=== PATIENT | female | born 1945 | race Caucasian/White ===

== ENCOUNTER 2020-02-22 15:08 | Outpatient (REF) | payer OTHER, SELFPAY ==
[2020-02-22 16:09] LABS: MANUAL DIFF FLAG NO
[2020-02-22 16:16] LABS: Basophils Absolute Auto 0.1 X10*3/uL (0.0-0.2); Basophils Percent Auto 0.9 % (0-2); Eosinophils Absolute Auto 0.5 X10*3/uL (0.0-0.4); Eosinophils Percent Auto 5.5 % (0-4); Hematocrit 42.3 % (37-47); Imm Gran Abs Auto 0.01 X10*3/uL (0.00-0.03); Imm Gran Pct Auto 0.1 % (0.0-0.4); Lymphocytes Absolute Auto 3.2 X10*3/uL (1.2-4.9); Lymphocytes Percent Auto 35.2 % (20-40); Mean Corpuscular HGB Conc 33.1 g/dl (31.0-35.0); Mean Corpuscular Hemoglobin 30.9 pg (27.0-33.0); Mean Corpuscular Volume 93.4 fL (80-98); Mean Platelet Volume 10.9 fL (9.4-12.3); Monocytes Absolute Auto 0.9 X10*3/uL (0.1-1.2); Monocytes Percent Auto 9.9 % (2-11); Neutrophils Absolute Auto 4.4 X10*3/uL (2.0-8.3); Neutrophils Percent Auto 48.4 % (45-73); Platelet Count 288 X10*3/uL (160-400); Red Blood Count 4.53 X10*6/uL (4.20-5.50); Red Cell Distribution Width 11.9 % (11.0-16.0); White Blood Count 9.1 X10*3/uL (4.8-10.8)
[2020-02-22 16:22] LABS: Estimated Average Glucose 134 mg/dL; Hemoglobin A1c % 6.3 %
[2020-02-22 16:41] LABS: Alanine Aminotransferase 27 U/L (0-31); Albumin Level 4.3 g/dL (3.5-5.0); Alkaline Phosphatase 157 U/L (39-117); Anion Gap 16 (12-20); Aspartate Amino Transferase 32 U/L (5-31); Bilirubin Total 0.6 mg/dL (0.0-1.0); Blood Urea Nitrogen 12 mg/dL (9-16); Carbon Dioxide 31 mmol/L (22-29); Chloride 99 mmol/L (96-108); Estimated Glomerular Filt Rate > 60; Glucose Random 119 mg/dL (60-115); Potassium 3.9 mmol/l (3.3-5.1); Sodium 142 mmol/L (135-145)
== END 2020-02-22 15:09 | disposition home or self-care (01) ==
LOC: HO.LAB 15:08
PROVIDERS: PCP Internal Medicine; Visit Provider Internal Medicine
DX: I10 Essential (primary) hypertension (principal); E78.00 Pure hypercholesterolemia, unspecified; R73.03 Prediabetes
CPT/HCPCS: 36415; 80053; 83036; 85025

== ENCOUNTER 2020-09-29 18:08 | Emergency (ER) | payer OTHER, SELFPAY ==
--- NOTE | 2020-09-29 | ECG_ITS ---
Test Reason : CHEST PAIN Blood Pressure : / mmHG Vent. Rate : 063 BPM Atrial Rate : 063 BPM P-R Int : 172 ms QRS Dur : 084 ms QT Int : 466 ms P-R-T Axes : 069 038 056 degrees QTc Int : 476 ms Normal sinus rhythm Normal ECG When compared with ECG of 22-JUL-2015 17:51, No significant change was found Referred By: Generic ED Physician Electronically Signed By:RAMONA PAGE
--- NOTE | ~2020-09-29 | XR_ITS ---
EXAMINATION: XR CHEST CLINICAL INFORMATION: Chest pain COMPARISON: Chest radiographs on 10/17/2019 and 10/26/2019 TECHNIQUE: 2 views of the chest were obtained. FINDINGS: The cardiomediastinal and hilar contours are within normal limits. The lungs are clear without focal consolidation, pleural effusion or pneumothorax. XR/XR chest 2V IMPRESSION: No acute process identified.
[2020-09-29 18:21] VITALS: BP 149/65; PULSE 75; RESP 16; TEMP 36.7; O2SAT 96; BMI 29.1
[2020-09-29 21:30] VITALS: BP 164/64; PULSE 62; RESP 13; TEMP 36.8; O2SAT 98
[2020-09-29 21:43] LABS: MANUAL DIFF FLAG NO
[2020-09-29 22:07] LABS: Basophils Absolute Auto 0.1 X10*3/uL (0.0-0.2); Basophils Percent Auto 0.7 % (0-2); Eosinophils Absolute Auto 0.4 X10*3/uL (0.0-0.4); Hemoglobin 13.5 g/dl (12.0-16.0); Imm Gran Abs Auto 0.03 X10*3/uL (0.00-0.03); Imm Gran Pct Auto 0.3 % (0.0-0.4); Lymphocytes Absolute Auto 4.1 X10*3/uL (1.2-4.9); Lymphocytes Percent Auto 38.4 % (20-40); Mean Corpuscular HGB Conc 33.8 g/dl (31.0-35.0); Mean Corpuscular Hemoglobin 30.9 pg (27.0-33.0); Mean Corpuscular Volume 91.5 fL (80-98); Mean Platelet Volume 10.1 fL (9.4-12.3); Neutrophils Absolute Auto 5.1 X10*3/uL (2.0-8.3); Neutrophils Percent Auto 47.6 % (45-73); Platelet Count 251 X10*3/uL (160-400); Red Blood Count 4.37 X10*6/uL (4.20-5.50); Red Cell Distribution Width 11.9 % (11.0-16.0); White Blood Count 10.6 X10*3/uL (4.8-10.8)
[2020-09-29 22:44] VITALS: BP 163/65; PULSE 66; RESP 15; O2SAT 97
[2020-09-29 23:23] LABS: Alanine Aminotransferase 20 U/L (0-31); Albumin Level 4.1 g/dL (3.5-5.0); Alkaline Phosphatase 151 U/L (39-117); Anion Gap 16 (12-20); Aspartate Amino Transferase 30 U/L (5-31); Bilirubin Total 0.4 mg/dL (0.0-1.0); Blood Urea Nitrogen 11 mg/dL (9-16); Calcium 9.6 mg/dL (8.4-10.2); Carbon Dioxide 30 mmol/L (22-29); Chloride 101 mmol/L (96-108); Creatinine Clr Calc Pharmacy 78.7; Estimated Glomerular Filt Rate > 60; Glucose Random 88 mg/dL (60-115); Lipase 38 U/L (8-78); Potassium 3.6 mmol/L (3.3-5.1); Sodium 143 mmol/L (135-145); Total Protein 6.9 g/dL (6.5-8.0)
[2020-09-29 23:25] LABS: Troponin-I High Sensitivity 3.8 ng/L (<3.5-17.0)
--- NOTE | 2020-09-29 23:52 | ED.CHESTPAIN ---
HPI - Chest Pain General Chief Complaint: Chest Pain Stated Complaint: ?pneumonia Time Seen by Provider: 09/29/20 23:52 Related Data Allergies Allergy/AdvReac Type Severity Reaction Status Date / Time cat dander [CATS] Allergy Unknown WHEEZING,RUNNY Unverified 12/29/19 15:38 NOSE dog dander [DOGS] Allergy Unknown RUNNY NOSE Unverified 12/29/19 15:38 codeine [CODEINE] AdvReac Mild HEART RACE Unverified 12/29/19 15:38 Codeine Phosphate Allergy Unknown tachycardia Uncoded 12/06/19 00:00 ENVIRONMENTAL Allergy Unknown AFFECTS Uncoded 12/29/19 15:38 BREATHING DAIRY PRODUCTS AdvReac Unknown LACTOSE Uncoded 12/29/19 15:38 INTOL Review of Systems Review of Systems: Constitutional : No Weight loss, No Fever, No Chills, No Night Sweats, No Fatigue, No Malaise ENT/Mouth : No Hearing loss, No Ear Pain, No Nasal Congestion, No Sinus Pain, No Hoarseness, No sore throat, No Rhinorrhea, No Swallowing Difficulty Eyes: No Eye Pain, No Swelling, No Redness, No Foreign Body, No Discharge, No Vision Changes Cardiovascular : No Chest Pain, No SOB, No Dyspnea on Exertion, No Orthopnea, No Edema, No Palpitations, chest tightness Respiratory : No Cough, No Sputum, No Wheezing, No Smoke Exposure, No Dyspnea Gastrointestinal : No Nausea, No Vomiting, No Diarrhea, No Constipation, No abdominal Pain, No Hematochezia, No Melena Genitourinary : no irregular bleeding, No Dysuria, No Urinary Frequency, No Hematuria, No Urinary Incontinence, No Urgency, No Flank Pain, No Urinary Flow Changes, No Hesitancy Musculoskeletal : No joint pain, No Myalgias, No Joint Swelling Skin : No Skin Lesions, No rash Neuro : No Weakness, No Numbness, No Paresthesias, No Loss of Consciousness, No Dizziness, No Headache Psych : No Anxiety/Panic, No Depression, No SI/HI/AH/VH, No Social Issues, Heme/Lymph: No Bruising, No Bleeding,No Lymphadenopathy Endocrine : No Polyuria, No Polydipsia, No Temperature Intolerance Yes all other systems are reviewed and are negative [facility] Social History Social History Advance Directives: No Advance Directives Information Provided: No Physical Exam Vital Signs: Vital Signs: Last Vital Signs Temp 98.3 F 09/29/20 21:30 Pulse 66 09/29/20 22:44 Resp 15 09/29/20 22:44 BP 163/65 H 09/29/20 22:44 Pulse Ox 97 09/29/20 22:44 Body Mass Index 29.1 Const: General: healthy appearing, no acute distress and well developed Nutritional Appearance: well nourished Orientation/consciousness: patient oriented x3 Neck: Neck: Yes normal visual inspection, Yes full ROM and Yes trachea midline Thyroid: Thyroid normal Resp: Auscultation: clear to auscultation bilaterally Cardio: Rate: regular rate Rhythm: regular rhythm GI: Inspection: Yes normal to inspection and No distended Palpation (GI): No hepatosplenomegaly present Auscultation: normal bowel sounds Skin: General skin exam: elasticity normal, turgor normal and dry skin Neuro: General: patient oriented x3 Course Course Course Narrative: 75-year-old female for complaining of chest tightness, waking up last night feeling below shaky. Patient worries that she might have pneumonia. X-ray done while patient waiting and no acute processes identified. WBC is show no leukocytosis or anemia. Will order troponin CMP with lipase. Reevaluation(s) Reevaluation #1: All labs negative for any acute processes. Troponin 3.8 patient will be discharged home to follow-up with her primary care physician in 2-3 days. MDM - Chest Pain Lab Data Result diagrams: 09/29/20 21:39 09/29/20 22:45 Labs: Lab Results 09/29/20 09/29/20 09/29/20 Range/Units 21:39 22:45 22:45 WBC 10.6 (4.8-10.8) X10*3/uL RBC 4.37 (4.20-5.50) X10*6/uL Hgb 13.5 (12.0-16.0) g/dl Hct 40.0 (37-47) % MCV 91.5 (80-98) fL MCH 30.9 (27.0-33.0) pg MCHC 33.8 (31.0-35.0) g/dl RDW 11.9 (11.0-16.0) % Plt Count 251 (160-400) X10*3/uL MPV 10.1 (9.4-12.3) fL Immature Gran % (Auto) 0.3 (0.0-0.4) % Neut % (Auto) 47.6 (45-73) % Lymph % (Auto) 38.4 (20-40) % [place] % (Auto) 9.0 (2-11) % Eos % (Auto) 4.0 (0-4) % Baso % (Auto) 0.7 (0-2) % Lymph # (Auto) 4.1 (1.2-4.9) X10*3/uL [place] # (Auto) 1.0 (0.1-1.2) X10*3/uL Eos # (Auto) 0.4 (0.0-0.4) X10*3/uL Baso # (Auto) 0.1 (0.0-0.2) X10*3/uL Abs Immat Gran (auto) 0.03 (0.00-0.03) X10*3/uL Absolute Neuts (auto) 5.1 (2.0-8.3) X10*3/uL Absolute Nucleated RBC 0.000 (0.0-0.012) X10*3/uL Nucleated RBC % (auto) 0.0 (0.0-0.2) /100WBC Sodium 143 (135-145) mmol/L Potassium 3.6 (3.3-5.1) mmol/L Chloride 101 (96-108) mmol/L Carbon Dioxide 30 H (22-29) mmol/L Anion Gap 16 (12-20) BUN 11 (9-16) mg/dL Creatinine 0.70 (0.5-1.4) mg/dL Estim Creat Clear Calc 78.7 Estimated GFR > 60 Random Glucose 88 (60-115) mg/dL Calcium 9.6 D (8.4-10.2) mg/dL Total Bilirubin 0.4 (0.0-1.0) mg/dL AST 30 (5-31) U/L ALT 20 (0-31) U/L Alkaline Phosphatase 151 H (39-117) U/L Troponin I High Sens 3.8 (<3.5-17.0) ng/L Total Protein 6.9 (6.5-8.0) g/dL Albumin 4.1 (3.5-5.0) g/dL Lipase 38 (8-78) U/L Imaging Data Chest x-ray: Radiologist's impression: FINDINGS: The cardiomediastinal and hilar contours are within normal limits. The lungs are clear without focal consolidation, pleural effusion or pneumothorax. XR/XR chest 2V IMPRESSION: No acute process identified. Discharge Plan Discharge Clinical Impression: Atypical chest pain Patient Disposition: Home, Self-Care Instructions: Costochondritis (ED) Additional Instructions: You were seen here today for complaining of chest tightness. Your chest x-ray was negative for any acute processes. All your lab work was normal. Please follow-up with your primary care physicians and 3 days. You may return to emergency department if you experience any concerning symptoms. Stand Alone Forms: Work/School Release Interventions: LWBS Worksheet Last Done: 09/29/20 19:33 ED Discharge Assessment Last Done: 09/30/20 00:37 Discharge Date/Time: 09/30/20 00:43
== END 2020-09-30 00:43 | disposition home or self-care (01) ==
PROVIDERS: Nurse Practitioner Family; Emergency Provider Internal Medicine; PCP Internal Medicine
DX: R07.89 Other chest pain (principal)
CPT/HCPCS: 36415; 71046; 80053; 83690; 84484; 85025; 93005; 99285

== ENCOUNTER 2020-11-06 13:21 | Outpatient (REF) | payer OTHER, SELFPAY ==
--- NOTE | ~2020-11-06 | MM_ITS ---
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 Due for yearly. COMPARISON: Mammography: 10/22/2018, 09/18/2017, 08/18/2017 TECHNIQUE: Digital breast tomosynthesis is performed in both the craniocaudal and mediolateral oblique views along with computer-aided detection (CAD). Synthesized 2D images are generated from the tomosynthesis. Additional magnification right CC and magnification right ML views are obtained. FINDINGS: There are scattered areas of fibroglandular density (ACR BI-RADS breast composition Category b). There is fibronodular parenchymal pattern similar to prior studies. There is no developing density or interval mass or architectural abnormality. No abnormal calcifications. The axilla and skin contours are unremarkable. Results are provided to the patient at time of visit by the technologist. MM/MM tomosynthesis diagnostic BI IMPRESSION: No mammographic evidence of malignancy. ASSESSMENT: BI-RADS 2: Benign RECOMMENDATION: Routine annual mammography screening. This patient's information was entered into a reminder system with a target due date for their next mammogram.
== END 2020-11-06 13:22 | disposition home or self-care (01) ==
LOC: HO.MAMMO 13:21
PROVIDERS: Visit Provider Internal Medicine
DX: C50.911 Malignant neoplasm of unspecified site of right female breast (principal)
CPT/HCPCS: 77062; 77066

== ENCOUNTER 2021-05-10 12:34 | Outpatient (REF) | payer OTHER, SELFPAY ==
--- NOTE | ~2021-05-10 | XR_ITS ---
EXAMINATION: XR CHEST CLINICAL INFORMATION: Cough and chest tightness. COMPARISON: Chest radiograph dated from 09/29/2020. TECHNIQUE: 2 views of the chest were obtained. FINDINGS: Normal appearance of the cardiomediastinal silhouette. The lungs are clear without focal consolidation, pleural effusion or pneumothorax. No acute osseous abnormalities. Mild thoracic spondylosis. XR/XR chest 2V IMPRESSION: No acute cardiopulmonary findings.
[2021-05-10 13:48] LABS: MANUAL DIFF FLAG NO
[2021-05-10 13:52] LABS: Basophils Absolute Auto 0.1 X10*3/uL (0.0-0.2); Basophils Percent Auto 0.9 % (0-2); Eosinophils Absolute Auto 0.4 X10*3/uL (0.0-0.4); Eosinophils Percent Auto 3.9 % (0-4); Hematocrit 45.2 % (37.0-47.0); Imm Gran Abs Auto 0.03 X10*3/uL (0.00-0.03); Imm Gran Pct Auto 0.3 % (0.0-0.4); Lymphocytes Percent Auto 30.6 % (20-40); Mean Corpuscular HGB Conc 33.2 g/dl (31.0-35.0); Mean Corpuscular Hemoglobin 30.2 pg (27.0-33.0); Mean Corpuscular Volume 91.1 fL (80.0-98.0); Mean Platelet Volume 10.6 fL (9.4-12.3); Monocytes Absolute Auto 0.7 X10*3/uL (0.1-1.2); Monocytes Percent Auto 7.5 % (2-11); Neutrophils Absolute Auto 5.5 x10*3/uL (2.0-8.3); Neutrophils Percent Auto 56.8 % (45-73); Platelet Count 333 X10*3/uL (160-400); Red Blood Count 4.96 X10*6/uL (4.20-5.50); Red Cell Distribution Width 12.1 % (11.0-16.0); White Blood Count 9.6 X10*3/uL (4.8-10.8)
[2021-05-10 14:09] LABS: Alanine Aminotransferase 23 U/L (0-31); Albumin Level 4.2 g/dL (3.5-5.0); Alkaline Phosphatase 162 U/L (39-117); Anion Gap 12 (12-20); Aspartate Amino Transferase 33 U/L (5-31); Bilirubin Total 0.6 mg/dL (0.0-1.0); Blood Urea Nitrogen 15 mg/dL (9-16); C Reactive Protein 1.34 mg/dL (< or = 0.50); Carbon Dioxide 31 mmol/L (22-29); Chloride 101 mmol/L (96-108); Cholesterol 193 mg/dL; Estimated Glomerular Filt Rate > 60; Glucose Fasting 182 mg/dL (60-99); Sodium 140 mmol/L (135-145); Total Protein 7.4 g/dL (6.5-8.0)
[2021-05-10 14:28] LABS: Thyroid Stimulating Hormone 0.85 uIU/mL (0.32-4.0)
== END 2021-05-10 12:35 | disposition home or self-care (01) ==
LOC: HO.10HDL 12:34
PROVIDERS: Visit Provider Internal Medicine
DX: R05.9 Cough, unspecified (principal); I10 Essential (primary) hypertension; K21.9 Gastro-esophageal reflux disease without esophagitis; R53.83 Other fatigue; R07.9 Chest pain, unspecified
CPT/HCPCS: 36415; 71046; 80053; 82465; 82550; 84443; 85025; 86140

== ENCOUNTER 2021-12-17 11:50 | Outpatient (REF) | payer OTHER, SELFPAY ==
--- NOTE | ~2021-12-17 | CT_ITS ---
EXAMINATION: CT CHEST WITH CONTRAST CLINICAL INFORMATION: Mediastinal adenopathy COMPARISON: Previous chest CTA July 2015 and chest x-ray April 2021 TECHNIQUE: Multidetector volumetric CT imaging of the chest was obtained after the administration of 65 mL of Omnipaque 350 intravenous contrast without immediate adverse reactions. Axial MIP volume rendering provided. Sagittal and coronal reformatted images were obtained. This CT examination was performed using dose optimization techniques as appropriate, variously including the following: *Automated exposure control *Adjustment of mA and/or kV according to patient size (this includes techniques or standardized protocols for targeted exams where dose is matched to indication/reason for exam; i.e. 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 There is linear scarring or subsegmental atelectasis in the right middle lobe. The lungs are otherwise clear. MEDIASTINUM: There are no enlarged hilar or mediastinal lymph nodes. There are right cardiophrenic angle or anterior diaphragmatic lymph nodes that are normal in size. The heart size is normal. No pericardial effusion. No coronary artery calcification. Normal caliber thoracic aorta. PLEURA: There is no pleural effusion. No pleural mass or thickening. AXILLA: No lymphadenopathy. UPPER ABDOMEN: Gallstones. There may be fatty infiltration of the liver. There are small upper abdominal lymph nodes. There is a small right adrenal nodule measuring 6 x 9 mm that is unchanged. OSSEOUS STRUCTURES: There are degenerative changes of the spine. CT/CT chest w IV con IMPRESSION: No mediastinal adenopathy. There is right cardiophrenic angle or anterior diaphragmatic and upper abdominal small lymph nodes. These lymph nodes are new compared to previous CTA from 2016. Fatty infiltration of the liver. Gallstones. Small stable right adrenal nodule. Fleischner guidelines were followed.
[2021-12-17 12:18] LABS: MANUAL DIFF FLAG NO
[2021-12-17 12:20] LABS: Basophils Absolute Auto 0.1 X10*3/uL (0.0-0.2); Eosinophils Absolute Auto 0.5 X10*3/uL (0.0-0.4); Eosinophils Percent Auto 5.6 % (0-4); Hematocrit 43.5 % (37.0-47.0); Hemoglobin 14.3 g/dl (12.0-16.0); Imm Gran Abs Auto 0.04 X10*3/uL (0.00-0.03); Imm Gran Pct Auto 0.4 % (0.0-0.4); Lymphocytes Absolute Auto 2.8 X10*3/uL (1.2-4.9); Lymphocytes Percent Auto 30.4 % (20-40); Mean Corpuscular HGB Conc 32.9 g/dl (31.0-35.0); Mean Corpuscular Hemoglobin 29.9 pg (27.0-33.0); Mean Corpuscular Volume 90.8 fL (80.0-98.0); Mean Platelet Volume 10.4 fL (9.4-12.3); Monocytes Absolute Auto 0.8 X10*3/uL (0.1-1.2); Monocytes Percent Auto 8.4 % (2-11); Neutrophils Percent Auto 54.2 % (45-73); Platelet Count 238 X10*3/uL (160-400); Red Blood Count 4.79 X10*6/uL (4.20-5.50); Red Cell Distribution Width 12.6 % (11.0-16.0); White Blood Count 9.2 X10*3/uL (4.8-10.8)
[2021-12-17 12:39] LABS: Alanine Aminotransferase 31 U/L (0-31); Albumin Level 4.2 g/dL (3.5-5.0); Alkaline Phosphatase 161 U/L (39-117); Anion Gap 16 (12-20); Aspartate Amino Transferase 38 U/L (5-31); Bilirubin Total 0.3 mg/dL (0.0-1.0); Blood Urea Nitrogen 12 mg/dL (9-16); Calcium 9.3 mg/dL (8.4-10.2); Carbon Dioxide 30 mmol/L (22-29); Chloride 101 mmol/L (96-108); Estimated Glomerular Filt Rate > 60; Glucose Random 173 mg/dL (60-115); Sodium 143 mmol/L (135-145); Total Protein 7.3 g/dL (6.5-8.0)
[2021-12-18 13:28] LABS: CA 27.29 40 U/mL (<38)
== END 2021-12-17 11:51 | disposition home or self-care (01) ==
LOC: HO.CT 11:50
PROVIDERS: PCP Internal Medicine; Visit Provider Internal Medicine Medical Oncology
DX: C50.919 Malignant neoplasm of unspecified site of unspecified female breast (principal); R59.0 Localized enlarged lymph nodes
CPT/HCPCS: 36415; 71260; 80053; 85025; 86300

== ENCOUNTER 2022-06-12 15:13 | Outpatient (REF) | payer OTHER, SELFPAY ==
--- NOTE | ~2022-06-12 | CT_ITS ---
EXAMINATION: CT CHEST WITH CONTRAST CLINICAL INFORMATION: Followup diaphragmatic and upper abdominal lymphadenopathy. COMPARISON: 12/17/2021 and 07/22/2015. TECHNIQUE: Multidetector volumetric CT imaging of the chest was obtained after the administration of 65 mL of Omnipaque 350 intravenous contrast without immediate adverse reactions. Axial MIP volume rendering provided. Sagittal and coronal reformatted images were obtained. This CT examination was performed using dose optimization techniques as appropriate, variously including the following: *Automated exposure control. *Adjustment of mA and/or kV according to patient size (this includes techniques or standardized protocols for targeted exams where dose is matched to indication/reason for exam; i.e. extremities or head). *Use of iterative reconstruction technique. DLP: 259 mGy-cm FINDINGS: LUNGS: The central airways are patent. There is bronchial wall thickening present bilaterally without bronchiectasis. No significant changes of emphysema are appreciated. There is bilateral apical pleural-parenchymal scarring. There is some scarring/atelectasis seen within the right middle lobe. Sub-4 mm densities present. Within the right middle lobe on image [address] series #5, there is a 4 mm noncalcified nodule. Not definitely identified on previous study of 07/22/2015. Stable on study of 12/17/2021. Within the right lower lobe on image 381 of 575, there is a 5 mm noncalcified nodule present. On previous study of 07/22/2015 this measured approximately 3 mm in diameter. Stable on study of 12/17/2021. There is a 4 mm noncalcified nodule seen within the left lower lobe on image 292 of 575. Not definitely identified on study of 07/22/2015. Stable on study of 12/17/2021. There is a 4 mm noncalcified density seen within the lingula on image [id number]. Not identified on study of 07/22/2015. Stable on prior study of 12/17/2021. MEDIASTINUM: Visualized thyroid gland unremarkable. Heart mildly enlarged. No pericardial effusion. Coronary artery calcification is present. No thoracic aortic aneurysm or dissection. No mediastinal or hilar lymphadenopathy. There are again noted to be some prominent right pericardial lymph nodes with the largest measuring approximately 1.3 x 1.0 cm in size. The next largest measures approximately 1.1 x 0.6 cm in size. These have not changed significantly compared to study of 12/17/2021. On previous study of 07/22/2015, the largest lymph node measured approximately 1.1 x 0.7 cm in size with the next largest measuring 7 x 5 mm in size. PLEURA: There is no pleural effusion. There are some areas of pleural thickening/plaque seen within the upper lobes bilaterally. No calcified plaques are evident. AXILLA: No lymphadenopathy. UPPER ABDOMEN: There is cholelithiasis without evidence of acute cholecystitis. There is a stable right adrenal gland lesion measuring 1.2 x 0.9 cm in size, unchanged from 07/22/2015. No followup for the adrenal lesion is recommended. There are some non-enlarged periportal and GE junction lymph nodes. OSSEOUS STRUCTURES: No destructive bony lesions identified. CT/CT chest w IV con IMPRESSION: 1. Lung nodules as described which are stable compared to study of 12/17/2021 but with most being new compared to study of 07/22/2015. 2. No change in mediastinal and upper abdominal prominent lymph nodes. 3. Stable right adrenal gland nodule for which followup is not required. According to the UPDATED 2017 Fleischner Society recommendations, the advised follow-up imaging for solid nodules < 6 mm is: LOW RISK PATIENT: No routine follow-up. HIGH RISK PATIENT: Optional CT at 12 months.
[2022-06-12] MEDS: iohexoL 350 MG/ML 100 ML INFUS..BTL IV (16:16)
[2022-06-13 08:03] LABS: Creatinine POC 0.5 mg/dL (0.5-1.4); GFR POC > 60
== END 2022-06-12 15:14 | disposition home or self-care (01) ==
LOC: HO.CT 15:13
PROVIDERS: Visit Provider Internal Medicine Medical Oncology
DX: C50.919 Malignant neoplasm of unspecified site of unspecified female breast (principal)
CPT/HCPCS: 71260; 82565; Q9967

== ENCOUNTER → 2022-09-03 14:01 | Outpatient (BNVA) | payer OTHER, SELFPAY | PROVIDERS: PCP Internal Medicine; Visit Provider Internal Medicine ==

== ENCOUNTER 2022-12-24 16:08 | Outpatient (REF) | payer OTHER, SELFPAY ==
[2022-12-24 16:18] LABS: MANUAL DIFF FLAG NO
[2022-12-24 17:31] LABS: Basophils Absolute Auto 0.1 X10*3/uL (0.0-0.2); Basophils Percent Auto 0.8 % (0-2); Eosinophils Absolute Auto 0.3 X10*3/uL (0.0-0.4); Hematocrit 43.1 % (37.0-47.0); Hemoglobin 14.2 g/dl (12.0-16.0); Imm Gran Abs Auto 0.04 X10*3/uL (0.00-0.03); Imm Gran Pct Auto 0.4 % (0.0-0.4); Lymphocytes Absolute Auto 3.2 X10*3/uL (1.2-4.9); Lymphocytes Percent Auto 32.9 % (20-40); Mean Corpuscular HGB Conc 32.9 g/dl (31.0-35.0); Mean Corpuscular Hemoglobin 29.9 pg (27.0-33.0); Mean Corpuscular Volume 90.7 fL (80.0-98.0); Mean Platelet Volume 11.5 fL (9.4-12.3); Monocytes Absolute Auto 0.8 X10*3/uL (0.1-1.2); Monocytes Percent Auto 8.4 % (2-11); Neutrophils Absolute Auto 5.3 x10*3/uL (2.0-8.3); Neutrophils Percent Auto 54.5 % (45-73); Platelet Count 293 X10*3/uL (160-400); Red Blood Count 4.75 X10*6/uL (4.20-5.50); Red Cell Distribution Width 12.4 % (11.0-16.0); White Blood Count 9.7 X10*3/uL (4.8-10.8)
[2022-12-24 18:13] LABS: Alanine Aminotransferase 26 U/L (0-31); Albumin Level 4.1 g/dL (3.5-5.0); Alkaline Phosphatase 145 U/L (39-117); Anion Gap 13 (12-20); Aspartate Amino Transferase 32 U/L (5-31); Bilirubin Total 0.4 mg/dL (0.0-1.0); Blood Urea Nitrogen 10 mg/dL (9-16); Calcium 9.6 mg/dL (8.4-10.2); Carbon Dioxide 32 mmol/L (22-29); Chloride 102 mmol/L (96-108); Cholesterol 185 mg/dL (<200); Estimated Glomerular Filt Rate > 60; Glucose Random 130 mg/dL (60-115); HDL Cholesterol 39 mg/dL (>40); LDL Cholesterol Calculated 120 mg/dL (<100); Potassium 3.7 mmol/L (3.3-5.1); Sodium 143 mmol/L (135-145); Total Protein 7.2 g/dL (6.5-8.0); Triglycerides 131 mg/dL (<150)
[2022-12-25 05:24] LABS: Estimated Average Glucose 154 mg/dL
== END 2022-12-24 16:09 | disposition home or self-care (01) ==
LOC: HO.LAB 16:08
PROVIDERS: PCP Internal Medicine; Visit Provider Internal Medicine
DX: I10 Essential (primary) hypertension (principal); E78.00 Pure hypercholesterolemia, unspecified; R73.03 Prediabetes; M19.90 Unspecified osteoarthritis, unspecified site; J45.909 Unspecified asthma, uncomplicated
CPT/HCPCS: 36415; 80053; 80061; 82306; 83036; 85025

== ENCOUNTER 2023-01-14 14:11 | Outpatient (REF) | payer OTHER, SELFPAY | END 2023-01-14 14:12 | disposition home or self-care (01) | LOC: HO.MAMMO 14:11 | PROVIDERS: PCP Internal Medicine; Visit Provider Internal Medicine | DX: Z13.820 Encounter for screening for osteoporosis (principal); Z78.0 Asymptomatic menopausal state | CPT/HCPCS: 77080 ==

== ENCOUNTER 2023-02-05 12:10 | Outpatient (REF) | payer OTHER, SELFPAY ==
--- NOTE | ~2023-02-05 | XR_ITS ---
EXAMINATION: XR CHEST CLINICAL INFORMATION: A 77-year-old female with cough COMPARISON: 05/10/2021, TECHNIQUE: 2 views of the chest were obtained. FINDINGS: Lungs are hyperinflated secondary to emphysema. There are no infiltrates nodules or pleural effusions seen. Cardiomediastinal silhouette is normal. XR/XR chest 2V IMPRESSION: Mild emphysematous changes
== END 2023-02-05 12:11 | disposition home or self-care (01) ==
LOC: HO.XRAY 12:10
PROVIDERS: PCP Internal Medicine; Visit Provider Internal Medicine
DX: R05.9 Cough, unspecified (principal); J45.909 Unspecified asthma, uncomplicated
CPT/HCPCS: 71046

== ENCOUNTER 2023-03-18 14:02 | Outpatient (AMB) | payer OTHER, SELFPAY ==
--- NOTE | 2023-03-18 14:10 | A.OFFVIS_ITS ---
Intake Vital Signs 03/18/23 14:11 Height 5 ft 7 in Weight 183 lb BMI 28.7 BP 130/62 Blood Pressure Location Lt brachial Position Sitting Pulse 74 Pulse Source Pulse Oximeter Pulse Oximetry (%) 96 Oxygen Delivery Method Room Air Intake Visit Reasons: COPD Intake Note: pt is here for follow up and states only short of breath with exertion. 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 Allergies cat dander [CATS] Allergy (Unknown, Unverified 03/18/23 14:21) WHEEZING,RUNNY NOSE dog dander [DOGS] Allergy (Unknown, Unverified 03/18/23 14:21) RUNNY NOSE codeine [CODEINE] Adverse Reaction (Mild, Unverified 03/18/23 14:21) HEART RACE Codeine Phosphate Allergy (Unknown, Uncoded 03/18/23 14:21) tachycardia ENVIRONMENTAL Allergy (Unknown, Uncoded 03/18/23 14:21) AFFECTS BREATHING DAIRY PRODUCTS Adverse Reaction (Unknown, Uncoded 03/18/23 14:21) LACTOSE INTOL Medication List - Last Reconciled 03/18/23 by Myrna Glasgow MD albuterol sulfate 90 mcg/actuation 2 puffs inhalation QID aspirin 1 tab PO DAILY benazepril 1 tab PO DAILY hydrochlorothiazide 1 tab PO DAILY lovastatin 1 tab PO DAILY metoprolol tartrate 0.5 tabs PO BID omeprazole 1 cap PO BID paroxetine HCl 1 tab PO BID temazepam 1 cap PO BEDTIME PRN tiotropium bromide 2.5 mcg/actuation (Spiriva Respimat) 2 puffs inhalation DAILY Do you need a note to return to daycare/school/sports/work: No HPI COPD HPI Details 78 YEARS OLD FEMALE, STILL WORKING FULL -TIME AT, [employer] ( PREVIOUS [employer] ) STAYS VERY ACTIVE, USES HER INHALER SPIRIVA RESPIMAT 2 PUFFS EVERY DAY IN THE MORNING, AND HARDLY NEEDS TO USE ALBUTEROL. SHE HAD MILD COVID INFECTION IN NOVEMBER BUT IT WENT WITHOUT CAUSING ANY SYMPTOMS. AT PRESENT SHE HER MAIN COMPLAINT IS GETTING SHORT OF BREATH IF SHE GOES UP STAIRS OF OR WALKS OUTDOORS AT A FAST PACE. SHE HAD VERY LITTLE COUGH OR EXPECTORATION. [facility] Medical History COPD (chronic obstructive pulmonary disease) COPD (chronic obstructive pulmonary disease) Hypercholesteremia Hypertension Surgical History History of lumpectomy of right breast Family History Father Hodgkin lymphoma Sister Breast cancer Social History Household Members: None Housing: Apartment Are you a primary care services manager to a significant other at home: No Do you presently have visiting nurse or other home services: No Patient Tobacco Use Status: Former Tobacco user Tobacco use type: Cigarette Years Smoked: 20 service: No Current occupational status: employed Review of Systems Const All systems reviewed & are unremarkable except as noted in HPI and below Eyes Reports no additional complaints ENT Reports no additional complaints Card Denies chest pain, Denies irregular heart rhythm and Denies leg edema Resp Reports as per HPI GI Reports no additional complaints Reports no additional complaints Musc Reports no additional complaints Skin/Breast Reports system reviewed and no additional complaints, except as documented Neuro Reports no additional complaints Psych Reports no additional complaints Endo Reports no additional complaints Des/Lymph Reports no additional complaints Physical Exam Vital Signs: Last Vital Signs Pulse 74 03/18/23 14:11 BP 130/62 03/18/23 14:11 Pulse Ox 96 03/18/23 14:11 Oxygen Delivery Method Room Air 03/18/23 14:11 BMI result Body Mass Index 28.7 Const General: healthy appearing, comfortable, no acute distress, alert and awake Orientation/consciousness: patient oriented x3 HEENT Head: Yes normal to inspection General nose exam: No nasal polyps present and No nasal discharge present Face and sinus: Yes sinuses nontender Mouth: oropharynx normal Throat: Yes posterior oropharynx normal Eyes General: appearance normal, both eyes and all related structures Neck Neck: Yes normal visual inspection, Yes no lymphadenopathy, Yes trachea midline and Yes no JVD Thyroid: Thyroid normal Chest Chest palpation & inspection: normal inspection of the chest, normal palpation of entire chest wall and no tenderness Resp Other: Percussion note is a resident. Breath sounds slightly distant. No wheezes rhonchi or crepitations are heard. Cardio Palpation: normal PMI Rate: regular rate Rhythm: regular rhythm Heart sounds: no gallops and no murmurs Peripheral pulses: Peripheral pulses 2+ throughout GI Palpation (GI): Soft to palpation, nontender, No hepatosplenomegaly present and no masses Auscultation: normal bowel sounds Back/Spine/Pelvis Thoracic/Lumbar Spine: thoracic and lumbar spine normal to inspection Skin General skin exam: no rashes or lesions noted Neuro General: patient oriented x3 and no focal motor deficits Cranial nerves: Yes CN's II-XII intact bilaterally Extrem General: Yes normal to inspection, Yes no clubbing, cyanosis or edema and Yes no calf tenderness Psych Appearance: grossly normal and well kempt Speech and movement: Normal speech and movement present Assessment & Plan Assessment & Plan (1) COPD (chronic obstructive pulmonary disease): Comment: THIS 78 YEARS OLD FEMALE DOES HAVE, RELATIVELY SEVERE CHRONIC OBSTRUCTIVE PULMONARY DISEASE. THIS HAS BEEN WELL CONTROLLED BY HER CURRENT TREATMENT REGIMEN AND SHE IS RELATIVELY ASYMPTOMATIC AT THIS TIME. TX: ADVISED TO CONTINUE USING SPIRIVA RESPIMAT 2.5 MCG 2 INHALATIONS DAILY. ALBUTEROL HFA 2 PUFFS Q 4-6 HOURS P.R.N.. Code(s): J44.9 - Chronic obstructive pulmonary disease, unspecified Plan: CONTINUE THE PRESENT MEDS. TALKED ABOUT VACCINES, .SHE IS UP TO DATE ADVISED THAT SHE SHOULD GET COVID VACCINE BEFORE THE END OF THE YEAR. RECHECK Q 6 MONTHS. Coding Level of Care Code Est Pt Level 3 (44535) Diagnoses COPD (chronic obstructive pulmonary disease) J44.9
[2023-03-18 14:11] VITALS: BP 130/62; PULSE 74; O2SAT 96; BMI 28.7
== END 2023-03-18 14:28 | disposition home or self-care (01) ==
PROVIDERS: PCP Internal Medicine; Visit Provider Internal Medicine
DX: J44.9 Chronic obstructive pulmonary disease, unspecified (principal)
CPT/HCPCS: 99213

== ENCOUNTER → 2023-03-18 14:02 | Outpatient (BNVA) | payer OTHER, SELFPAY | PROVIDERS: PCP Internal Medicine; Visit Provider Internal Medicine ==

== ENCOUNTER 2024-11-07 14:20 | Outpatient (AMB) | payer OTHER, SELFPAY ==
--- OUTSIDE RECORDS SUMMARY | 2024-11-07 15:05 | XMS_ITS | Patient Health Record ---
Author Organization [facility] Address [address] [place] [id number] Care Team Providers Care Food Counselor Name Role Phone Rosas Reynolds Davidabigail Chadwick Reason For Referral No Information Plan Of Treatment No Information
--- OUTSIDE RECORDS SUMMARY | 2024-11-07 15:05 | XMS_ITS | Clinical Summary ---
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 Name Role Phone Unavailable Primary Care Provider Unavailabl e Immunizations Immunization Administration Dates Next Due Influenza, seasonal, injectable, preservative fr ee 02/02/2024 Pfizer Covid-19 Vaccine 12+ 02/02/2024, 3 Social History Tobacco Use Types Packs/Day Years Used Date Smoking Tobacco: Never Assessed Comments Unknown Sex and Gender Information Value Date Recorded Sex Assigned at Female 03/31/2023 4:24 PM EST Legal Sex Female 4:22 PM EST Gender Identity Female 03/31/2023 4:24 PM EST Sexual Orientation Straight 03/31/2023 4: 24 PM EST Plan of Treatment Health Maintenance Due Date Last Done Comments Depression Screening 1945 SDOH Screening 1945 Alcohol/Substance Use Screening 1958 Tobacco Screening 1958 Hepatitis C Screening 02/26/1964 DTaP/Tdap/Td Vaccines (1 - Tdap) 1965 Pneumococcal Vaccine: 50+ Years (1 of 1 - PCV) 02/26/1996 Zoster Vaccines (1 of 2) 02/26/1996 COVID-19 Vaccine ( season) 2024 02/02/2024, 03/31/2023, 08/14/2021, Additional history exists Influenza Vaccine (#1) 2024 , 12/31/2021, 12/21/2018, Additional history exists RSV Patients and Patients Aged 60 years or older Completed 01/21/2023 HIB Vaccines Aged Out No longer eligi ble based on patient's age to complete this topic HPV Vaccines Aged Out No longer eligi ble based on patient's age to complete this topic Hepatitis A Vaccines Aged Out No long er eligible based on patient's age to complete this topic Hepatitis B Vaccines Aged Out No long er eligible based on patient's age to complete this topic IPV Vaccines Aged Out No longer eligi ble based on patient's age to complete this topic Meningococcal B Vaccine Aged Out No l onger eligible based on patient's age to complete this topic Meningococcal Vaccine Aged Out No valentin antonino eligible based on patient's age to complete this topic RSV under 20 months Aged Out No longe r eligible based on patient's age to complete this topic Rotavirus Vaccines Aged Out No longer eligible based on patient's age to complete this topic Insurance [facility] [address] [place] [address]
--- NOTE | 2024-11-07 15:20 | AM.OFFWIN_ITS ---
Intake Vital Signs 11/07/24 15:24 Height 5 ft 7 in Weight 167 lb 8 oz BMI 26.2 BP 132/70 Blood Pressure Location Lt brachial Position Sitting Pulse 70 Pulse Source Pulse Oximeter Temp 97.8 F Temp Source Oral Pulse Oximetry (%) 97 Oxygen Delivery Method Room Air Intake Visit Reasons: EP-?shingles Intake Note: presents with red itchy and burning rash to neck and right chin Patient Tobacco Use Status: Former Tobacco user Allergies cat dander (CATS) Allergy (Unknown, Verified 11/07/24 15:27) WHEEZING,RUNNY NOSE dog dander (DOGS) Allergy (Unknown, Verified 11/07/24 15:27) RUNNY NOSE codeine (CODEINE) Adverse Reaction (Mild, Verified 11/07/24 15:27) HEART RACE Codeine Phosphate Allergy (Unknown, Uncoded 03/18/23 14:21) tachycardia ENVIRONMENTAL Allergy (Unknown, Uncoded 03/18/23 14:21) AFFECTS BREATHING DAIRY PRODUCTS Adverse Reaction (Unknown, Uncoded 03/18/23 14:21) LACTOSE INTOL Do you need a note to return to daycare/school/sports/work: No HPI HPI Comments History of Present Illness Details History - The patient is a 79-year-old female pr esenting with a rash on the neck, suspected to be shingles as per her pharmacist. - The rash began on with dry sk in noticed on the neck, which progressively worsened over the following days. - The patient reports the rash is itchy and burning, with some areas developing fluid-filled vesicles. - The patient has a history of shingles approximately 10 years ago, which was localized and did not spread. - No new lotions or creams have been use d, and there is no history of allergic reactions. Physical Exam General: Cooperative, healthy appearing, comfortable, no acute distress and well developed Orientation: Patient oriented x3 Limitations: No limitations Head: Normal to inspection Ears: Hearing grossly normal bilaterally Nose: Normal External nose present Face and sinus: Normal facial exam Eyes: Appearance normal, both eyes and all related structures Neck: Normal visual inspection and Yes full ROM Respiratory: Normal respiratory effort and able to speak in complete sentences. Skin: Vesicular rash with an erythematous base on the neck C2 dermatome Neuro: Patient oriented x3 PENDING SALE TO [facility] Medical History COPD (chronic obstructive pulmonary disease) COPD (chronic obstructive pulmonary disease) Hypercholesteremia Hypertension Surgical History History of lumpectomy of right breast Family History Father Hodgkin lymphoma Sister Breast cancer Social History Household Members: None Housing: Apartment Are you a primary home care coordinator to a significant other at home: No Do you presently have visiting nurse or other home services: No Patient Tobacco Use Status: Former Tobacco user Tobacco use type: Cigarette Years Smoked: 20 service: No Current occupational status: employed Review of Systems Const All systems reviewed & are unremarkable except as noted in HPI and below Physical Exam Vital Signs: Last Vital Signs Temp 97.8 F 11/07/24 15:24 Pulse 70 11/07/24 15:24 BP 132/70 11/07/24 15:24 Pulse Ox 97 11/07/24 15:24 Oxygen Delivery Method Room Air 11/07/24 15:24 BMI result Body Mass Index 26.2 Assessment & Plan Assessment & Plan (1) Shingles rash: Code(s): B02.9 - Zoster without complications Qualifiers: Herpes zoster complications: unspecified herpes zoster complication Qualified Code(s): B02.8 - Zoster with other complications Plan: Plan Patient was informed and verbally consented to the use of an ambient scribe for clinic note documentation during this visit. Herpes Zoster (Shingles) - Does not appear to be a contact dermatitis - Initiate treatment with valacyclovir, 1 gram every 8 hours for 7 days. - Prescribe gabapentin for nerve pain, 100 mg three times a day as needed. - Advise follow-up if symptoms do not improve after a few days of treatment. May not be shingles and may need a referral to Derm. Medications: New valacyclovir 1,000 mg PO Q8H 21 tabs 0RF 7 days gabapentin 100 mg PO TID PRN 20 caps 0RF pain Coding Level of Care Code Est Pt Level 3 (26455) Diagnoses Herpes zoster with complication B02.8 Herpes zoster complications: unspecified herpes zoster complication
[2024-11-07 15:24] VITALS: BP 132/70; PULSE 70; TEMP 36.6; O2SAT 97; BMI 26.2
== END 2024-11-07 16:07 | disposition home or self-care (01) ==
PROVIDERS: PCP Internal Medicine; Visit Provider Physician Assistant
DX: B02.8 Zoster with other complications (principal)

== ENCOUNTER 2024-11-11 16:19 | Outpatient (AMB) | payer OTHER, SELFPAY ==
--- OUTSIDE RECORDS SUMMARY | 2024-11-11 16:21 | XMS_ITS | Patient Health Record ---
Author Organization [facility] Address [address] [place] [id number] Care Team Providers Care Meter Installer And Remover Name Role Phone Rosas Reynolds Davidabigail Chadwick Reason For Referral No Information Plan Of Treatment No Information
[2024-11-11 16:22] VITALS: BP 122/66; PULSE 68; TEMP 36.6; O2SAT 97; BMI 26.2
--- NOTE | 2024-11-11 16:22 | MHC.OFFWIV ---
Intake Vital Signs 11/11/24 16:22 Height 5 ft 7 in Weight 167 lb BMI 26.2 BP 122/66 Blood Pressure Location Lt brachial Position Sitting Pulse 68 Pulse Source Pulse Oximeter Temp 97.9 F Temp Source Oral Pulse Oximetry (%) 97 Oxygen Delivery Method Room Air Intake Visit Reasons: EP-neck rash Intake Note: pt presents with concern for vibrant red and spreading rash, didn't take Valacyclovir prescribed a few days ago but did take the gabapentin- D/C due to dizzy reaction. Patient Tobacco Use Status: Former Tobacco user Allergies cat dander (CATS) Allergy (Unknown, Verified 11/11/24 16:25) WHEEZING,RUNNY NOSE dog dander (DOGS) Allergy (Unknown, Verified 11/11/24 16:25) RUNNY NOSE codeine (CODEINE) Adverse Reaction (Mild, Verified 11/11/24 16:25) HEART RACE Codeine Phosphate Allergy (Unknown, Uncoded 03/18/23 14:21) tachycardia ENVIRONMENTAL Allergy (Unknown, Uncoded 03/18/23 14:21) AFFECTS BREATHING DAIRY PRODUCTS Adverse Reaction (Unknown, Uncoded 03/18/23 14:21) LACTOSE INTOL Do you need a note to return to daycare/school/sports/work: Yes HPI HPI Comments History of Present Illness Details History - The patient is a 79-year-old female presenting with a rash on the face and neck, suspected to be shingles. - The rash began earlier in the week, starting as a rough patch on the right jawbone and evolving into a flat, red rash with occasional small bumps. - Vesicles were initially present but have since resolved, leaving a flat, red rash. - The patient applied Eucerin cream for dry itching but noted no significant improvement. - Valacyclovir was prescribed but not taken due to concerns about side effects; gabapentin was used for nerve pain instead. - Cincerned as she feels like the rash has not improved - She works and is afraid that she won't be allowed to work. - She denies fever, chills, abd pain, n/v/d, CP, SOB. Physical Exam General: Cooperative, healthy appearing, comfortable, no acute distress but emotional Orientation: Patient oriented x3 Neck: Rash present Respiratory: Normal respiratory effort and able to speak in complete sentences. Skin: Erythematous, non-tender flat macular rash noted on the anterior neck in the C4 dermatome. No vesicles noted. No discharge noted. No bleeding noted. Neuro: Patient oriented x3 Patient was informed and verbally consented to the use of an ambient scribe for clinic note documentation during this visit. [facility] Medical History COPD (chronic obstructive pulmonary disease) COPD (chronic obstructive pulmonary disease) Hypercholesteremia Hypertension Surgical History History of lumpectomy of right breast Family History Father Hodgkin lymphoma Sister Breast cancer Social History Household Members: None Housing: Apartment Are you a primary behavioral health care coordinator to a significant other at home: No Do you presently have visiting nurse or other home services: No Patient Tobacco Use Status: Former Tobacco user Tobacco use type: Cigarette Years Smoked: 20 service: No Current occupational status: employed Review of Systems Const All systems reviewed & are unremarkable except as noted in HPI and below Physical Exam Vital Signs: Last Vital Signs Temp 97.9 F 11/11/24 16:22 Pulse 68 11/11/24 16:22 BP 122/66 11/11/24 16:22 Pulse Ox 97 11/11/24 16:22 Oxygen Delivery Method Room Air 11/11/24 16:22 BMI result Body Mass Index 26.2 Assessment & Plan Assessment & Plan (1) Shingles rash: Code(s): B02.9 - Zoster without complications Qualifiers: Herpes zoster complications: unspecified herpes zoster complication Qualified Code(s): B02.8 - Zoster with other complications (2) Rash of neck: Code(s): R21 - Rash and other nonspecific skin eruption Plan Most likely shingles and possibel secondary cellulitis Plan - Initiate prednisone to alleviate inflammation and itching. - Prescribe Keflex to treat any secondary bacterial infection. - Discuss the benefits of Valacyclovir for managing the shingles virus, addressing concerns about side effects. - Tylenol as needed for pain with the gabapentin - follow up with PCP Medications: New cephalexin 500 mg PO Q6H 28 caps 0RF prednisone 50 mg PO QAM 5 tabs 0RF Coding Level of Care Code Est Pt Level 3 (16649) Diagnoses Herpes zoster with complication B02.8 Herpes zoster complications: unspecified herpes zoster complication Rash of neck R21
== END 2024-11-11 16:58 | disposition home or self-care (01) ==
PROVIDERS: PCP Internal Medicine; Visit Provider Physician Assistant Medical
DX: B02.8 Zoster with other complications (principal); R21 Rash and other nonspecific skin eruption

== ENCOUNTER 2025-01-18 14:05 | Outpatient (REF) | payer OTHER, SELFPAY ==
[2025-01-18 15:21] LABS: MANUAL DIFF FLAG NO
[2025-01-18 15:36] LABS: Hematocrit 41.4 % (37.0-47.0); Hemoglobin 13.9 g/dl (12.0-16.0); Imm Gran Abs Auto 0.03 X10*3/uL (0.00-0.03); Imm Gran Pct Auto 0.3 % (0.0-0.4); Lymphocytes Absolute Auto 3.8 X10*3/uL (1.2-4.9); Mean Corpuscular HGB Conc 33.6 g/dl (31.0-35.0); Mean Corpuscular Hemoglobin 30.4 pg (27.0-33.0); Mean Corpuscular Volume 90.6 fL (80.0-98.0); NRBC Abs Auto 0.000 X10*3/uL (0.0-0.012); NRBC Pct Auto 0.0 /100WBC (0.0-0.2); Platelet Count 300 X10*3/uL (160-400); Red Blood Count 4.57 X10*6/uL (4.20-5.50); White Blood Count 11.1 X10*3/uL (4.8-10.8)
[2025-01-18 18:05] LABS: Alanine Aminotransferase 25 U/L (0-31); Albumin Level 4.5 g/dL (3.5-5.0); Alkaline Phosphatase 188 U/L (39-117); Anion Gap 13 (12-20); Aspartate Amino Transferase 36 U/L (5-31); Blood Urea Nitrogen 18 mg/dL (9-16); Calcium 10.1 mg/dL (8.4-10.2); Carbon Dioxide 30 mmol/L (22-29); Chloride 103 mmol/L (96-108); Cholesterol 166 mg/dL (<200); Estimated Glomerular Filt Rate > 60; HDL Cholesterol 35 mg/dL (>40); Potassium 3.9 mmol/L (3.3-5.1); Sodium 142 mmol/L (135-145); Total Protein 7.6 g/dL (6.5-8.0); Triglycerides 148 mg/dL (<150)
== END 2025-01-18 14:06 | disposition home or self-care (01) ==
LOC: HO.LAB 14:05
PROVIDERS: PCP Student in an Organized Health Care Education/Training Program; Visit Provider Student in an Organized Health Care Education/Training Program
DX: Z76.89 Persons encountering health services in other specified circumstances (principal); E78.49 Other hyperlipidemia; I10 Essential (primary) hypertension; J41.0 Simple chronic bronchitis; E11.9 Type 2 diabetes mellitus without complications; K21.9 Gastro-esophageal reflux disease without esophagitis; F33.0 Major depressive disorder, recurrent, mild; G47.09 Other insomnia; Z79.82 Long term (current) use of aspirin; Z79.84 Long term (current) use of oral hypoglycemic drugs; Z79.899 Other long term (current) drug therapy; Z87.891 Personal history of nicotine dependence
CPT/HCPCS: 36415; 80053; 80061; 82306; 83036; 84443; 85025; 96127

== ENCOUNTER 2025-01-18 14:05 | Outpatient (AMB) | payer OTHER, SELFPAY ==
--- NOTE | 2025-01-18 13:26 | A.OFFPC_ITS ---
Vital Signs 01/18/25 14:10 Height 5 ft 7 in Weight 167 lb BMI 26.2 BP 140/58 H Blood Pressure Location Lt brachial Position Sitting Respiration 18 Pulse 73 Pulse Source Pulse Oximeter Temp 97.1 F Temp Source Temporal Artery Scan Pulse Oximetry (%) 98 Oxygen Delivery Method Room Air Intake Visit Reasons: Croke pt-to establish care Porcelain Enamel Sprayer Required: No Accompanied by: Self / Same As Patient Allergies cat dander (CATS) Allergy (Unknown, Verified 01/18/25 13:27) WHEEZING,RUNNY NOSE dog dander (DOGS) Allergy (Unknown, Verified 01/18/25 13:27) RUNNY NOSE codeine (CODEINE) Adverse Reaction (Mild, Verified 01/18/25 13:27) HEART RACE Codeine Phosphate Allergy (Unknown, Uncoded 03/18/23 14:21) tachycardia ENVIRONMENTAL Allergy (Unknown, Uncoded 03/18/23 14:21) AFFECTS BREATHING DAIRY PRODUCTS Adverse Reaction (Unknown, Uncoded 03/18/23 14:21) LACTOSE INTOL Medication List - Last Reconciled 01/18/25 by Prabhjot Smith MD albuterol sulfate 90 mcg/actuation 2 puffs inhalation QID PRN aspirin 81 mg PO DAILY benazepril 40 mg PO DAILY bimatoprost 0.03% 1 drp ophthalmic (eye) BEDTIME hydrochlorothiazide 25 mg PO DAILY lovastatin 40 mg PO DAILY metformin ER 250 mg PO DAILY metoprolol tartrate 25 mg (1/2 x 50 mg) PO BID omeprazole 20 mg PO BID paroxetine HCl 20 mg PO BID Spiriva Respimat 2.5 mcg/actuation (tiotropium bromide) 2 puffs inhalation DAILY NS temazepam 15 mg PO BEDTIME PRN 10 days Tobacco use date assessed: 01/18/25 Fall risk assessment: 1 Fall in past year Last assessed Fall Risk: 01/18/25 Dental Screening Dental Screen Date: 01/18/25 Did you have a dental visit in the last 12 months?: Yes Did you have a dental problem in the last 6 months where you did not have access to dental care?: No Was dental information given to patient?: Patient has dentist HPI HPI Comments History of Present Illness Details The patient is a 79-year-old female presenting with insomnia, depression, and concerns related to her medications. She reports ongoing difficulty sleeping, stating, Sleep is not good, and is concerned about the current use of Temazepam, which she feels she cannot wean off because she needs it to sleep. The patient describes the medication as causing dependence and is worried about its horrible side effects, specifically mentioning potential dementia risk. She also discusses depression, reporting a constant feeling of depression for the past 30 years despite being on paroxetine (Paxil) initially started at around age 41. She feels that the medication is no longer effective, mentioning that she wakes up feeling depressed daily. She notes a recent episode of neck pain that occurred upon waking, describing it as a sharp pain but not soreness or spasms, which resolved on its own. Additionally, she noticed that the roof of her mouth was slightly swollen at that time, which also subsided. Her medical history includes a diagnosis of hypertension managed by multiple medications. She also notes a past prescription of metformin for type 2 diabetes, with a last recorded A1c of 7 as of December 2022, indicating fair control of her blood sugar. She takes aspirin for cardiac prevention, Spiriva, and albuterol for COPD management, and lumigan for glaucoma. Medical History: - Hypertension - Hyperlipidemia - Type 2 Diabetes Mellitus (A1c of 7 in December 2022) - Chronic Obstructive Pulmonary Disease (COPD) - Glaucoma - Gastroesophageal reflux disease (GERD) - Major depressive disorder - Smoked from age 27 to 47, ceased 30 ye ars ago Surgical History: - Breast lump removal in 2018, found to be benign Medications: - Temazepam for insomnia - Paroxetine (Paxil) for depression - Lisinopril 40 mg for hypertension - Hydrochlorothiazide 25 mg for hyperten april - Lovastatin 40 mg for hyperlipidemia - Metoprolol tartrate 25 mg twice a day for hypertension - Aspirin for cardiac prevention - Spiriva, 2 puffs daily for COPD - Albuterol as needed for COPD - Lumigan for glaucoma - Omeprazole 20 mg as needed for acid re flux - Metformin 250 mg extended release pawan y for diabetes Family History: - Father: Hodgkin's lymphoma diagnosed a t age 49, lived to 89 - Mother: Cerebral hemorrhage Social History: - Employment: 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, 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 - Smoked from age 27 to 47; quit 30 year s ago - No alcohol or drug use reported - No current exercise routine discussed - Lives independently - Does not consume alcohol, marijuana, h eroin, or cocaine [facility] Medical History (Updated 01/18/25 @ 14:55 by Prabhjot Smith MD) Insomnia Depression GERD (gastroesophageal reflux disease) Diabetes Hyperlipidemia COPD (chronic obstructive pulmonary disease) COPD (chronic obstructive pulmonary disease) Hypercholesteremia Hypertension Surgical History History of lumpectomy of right breast Family History Father Hodgkin lymphoma Sister Breast cancer Social History Household Members: None Housing: Apartment Are you a primary healthcare consulting manager to a significant other at home: No Do you presently have visiting nurse or other home services: No Patient Tobacco Use Status: Former Tobacco user Tobacco use type: Cigarette Years Smoked: 20 e-Cigarette/Vaping Use: Never Used service: No Current occupational status: employed Current occupation: [employer] Questionnaire PHQ-9 Over the last 2 weeks, how often have you been bothered by any of the following problems? 1. Little interest or pleasure in doing things: several days 2. Feeling down, depressed, or hopeless: several days 3. Trouble falling or staying asleep, or sleeping too much: several days 4. Feeling tired or having little energy: several days 5. Poor appetite or overeating: several days 6. Feeling bad about yourself - or that you are a failure or have let yourself or your family down: several days 7. Trouble concentrating on things, such as reading the newspaper or watching television: several days 8. Moving or speaking so slowly that other people could have noticed. Or the opposite - being so fidgety or restless that you have been moving around a lot more than usual: not at all 9. Thoughts that you would be better off or of hurting yourself in some way: not at all Total score: 7 Depression Screening Interpretation: Negative Depression Screening Done: Yes [id number] - PHQ-9 Billing: Yes Source: Developed by Drs. Tito Multani, Herlinda Holder, Manuel Paredes and colleagues, with an educational carissa from [employer]. Thrive Questionnaire Date Thrive assessed: 10/08/25 I am a: Patient What is your living situation today?: I have a steady place to live Within the past 12 months, did the food you bought not last and you didn't have the money to get more?: Never true Within the past 12 months, did you worry whether your food would run out before you got money to buy more?: Never true Do you have trouble paying for medicines?: No Do you have trouble getting transportation to medical appointments?: No Do you have trouble paying your heating and electricity bill?: No Do you have trouble taking care of your child, family member or friend?: No Do you have trouble with day-to-day activities such as bathing, preparing meals, shopping, managing finances, etc.?: No Are you currently unemployed and looking for a job?: No Are you interested in more education?: No THRIVE Score: 0 AUDIT C Alcohol Use Questionnaire (AUDIT-C) 1. How often do you have a drink containing alcohol?: Never 3. How often do you have six or more drinks on one occasion?: Never Total Score: 0 Score Reviewed/Action Taken: Yes YUNIOR-7 AMB Questionnaire YNUIOR-7 Date YUNIOR - 7 assessed: 01/18/25 Feeling nervous, anxious, or on edge: 1 = Several days Not being able to stop or control worryin = Several days Worrying too much about different things: 1 = Several days Trouble relaxin = Several days Being so restless that it is hard to sit still: 1 = Several days Becoming easily annoyed or irritable: 0 = Not at all Feeling afraid as if something awful might happen: 0 = Not at all Total YUNIOR-7 score (0-4 normal; 5-9 mild; 10-14 moderate; 15-21 severe): 5 Source: Developed by Drs. Tito Multani, Herlinda Holder, Manuel Paredes and colleagues, with an educational carissa from [employer]. YUNIOR-7 Assessment Billing YUNIOR-7 Assessment Tool: YUNIOR-7 Assessment 70431 Review of Systems Const Details: - General: Reports insomnia; Denies fatigue beyond normal tiredness from work - Eyes: Reports glaucoma - Respiratory: Reports COPD management - Cardiovascular: Reports hypertension - Gastrointestinal: Reports GERD - Musculoskeletal: Reports neck pain episodically - Neurologic: Denies tremors beyond anxiety-related episodes - Psychiatric: Reports depression All systems reviewed & are unremarkable except as reviewed in HPI and above Physical exam (Primary Care) Vital Signs: Last Vital Signs Temp 97.1 F 01/18/25 14:10 Pulse 73 01/18/25 14:10 Resp 18 01/18/25 14:10 BP 140/58 H 01/18/25 14:10 Pulse Ox 98 01/18/25 14:10 Oxygen Delivery Method Room Air 01/18/25 14:10 BMI result Body Mass Index 26.2 Tobacco/Smoking Status: Tobacco use Status Tobacco use date assessed 01/18/25 01/18/25 13:28 Patient Tobacco Use Status Former Tobacco user 01/18/25 13:28 Tobacco use type Cigarette 01/18/25 13:28 e-Cigarette/Vaping Use Never Used 01/18/25 13:28 PHQ-9: PHQ-9 Score PHQ-9: Total score 7 01/18/25 14:24 Depression Screening Interpretation: Negative Thrive Assessment: Date of Thrive Assessment Date Thrive assessed 01/18/25 01/18/25 14:24 Const Other: General: +Alert and oriented, Well nourished, No acute distress. Eye: Pupils are equal, round and reactive to light, Intact accommodation, Extraocular movements are intact, Normal conjunctiva, Vision unchanged. HENT: Normocephalic, Atraumatic, Tympanic membranes are clear, Normal hearing, Oral mucosa is moist, No pharyngeal erythema, Ear canals patent. Respiratory: Lungs CTA bilaterally, No wheeze, Respirations are non-labored. Cardiovascular: Regular rate, Regular rhythm, S1 auscultated, S2 auscultated, No murmur, Good pulses equal in all extremities, Normal peripheral perfusion, No edema. Gastrointestinal: Soft, Non-tender, Non-distended, Normal bowel sounds, No organomegaly. Musculoskeletal: Normal range of motion, Normal strength, No tenderness, No swelling, No deformity, Normal gait. Integumentary: Warm, Dry, [place], Intact. Neurologic: Alert, Oriented, Normal sensory, Normal motor function, No focal defects, Cranial Nerves II-XII are grossly intact, Normal deep tendon reflexes. Psychiatric: Cooperative, Appropriate mood & affect, Normal judgment. Coding Level of Care Code New Pt Level 4 (52900) Complex EM visit Add On G2211 Diagnoses Other hyperlipidemia E78.49 Hyperlipidemia type: other hyperlipidemia Hypertension, unspecified type I10 Hypertension type: unspecified Simple chronic bronchitis J41.0 COPD type: chronic bronchitis Chronic bronchitis type: simple Type 2 diabetes mellitus without complication, without long-term current use of insulin E11.9 Diabetes mellitus type: type 2 Diabetes mellitus exterminator helper termite insulin use: without exterminator helper termite use Diabetes mellitus complication status: without complication Gastroesophageal reflux disease without esophagitis K21.9 Esophagitis presence: without esophagitis Mild episode of recurrent major depressive disorder F33.0 Depression Type: major depressive disorder Major depression recurrence: recurrent Active/Remission status: currently active Major depression episode severity: mild Other insomnia G47.09 Insomnia type: other insomnia Additional Codes YUNIOR-7 Assessment Billing - YUNIOR-7 Assessment Tool: YUNIOR-7 Assessment 98102 ([id number]) PHQ-9 - 50949 - PHQ-9 Billing: Yes ([id number]) Time Spent (min) 50 Assessment & Plan Assessment & Plan (1) Hyperlipidemia: Comment: - Continue current statin therapy with Lovastatin. Code(s): E78.5 - Hyperlipidemia, unspecified Category: Medical Qualifiers: Hyperlipidemia type: other hyperlipidemia Qualified Code(s): E78.49 - Other hyperlipidemia (2) Hypertension: Comment: - Continue current medication regimen. Code(s): I10 - Essential (primary) hypertension Category: Medical Qualifiers: Hypertension type: unspecified Qualified Code(s): I10 - Essential (primary) hypertension (3) COPD (chronic obstructive pulmonary disease): Comment: - Continued Spiriva daily and Albuterol as needed. - Rarely uses Albuterol Code(s): J44.9 - Chronic obstructive pulmonary disease, unspecified Category: Medical Qualifiers: COPD type: chronic bronchitis Chronic bronchitis type: simple Qualified Code(s): J41.0 - Simple chronic bronchitis (4) Diabetes: Comment: - Repeat A1c testing advised to reassess glucose control. (Previous A1c at 7 from 2022) - Continue Metformin as prescribed. Code(s): E11.9 - Type 2 diabetes mellitus without complications Category: Medical Qualifiers: Diabetes mellitus type: type 2 Diabetes mellitus exterminator helper termite insulin use: without senior living use Diabetes mellitus complication status: without complication Qualified Code(s): E11.9 - Type 2 diabetes mellitus without complications (5) GERD (gastroesophageal reflux disease): Comment: - Continue Omeprazole as needed basis. Code(s): K21.9 - Gastro-esophageal reflux disease without esophagitis Category: Medical Qualifiers: Esophagitis presence: without esophagitis Qualified Code(s): K21.9 - Gastro-esophageal reflux disease without esophagitis (6) Depression: Comment: - Plan to transition from Paroxetine to Mirtazapine due to ineffectiveness. - Begin weaning Paroxetine; new prescription for Mirtazapine initiated starting at 7.5 mg. (Week 1 20 mg q.a.m. and 10 mg q.p.m., weight 210 mg q.a.m. and 10 mg q.p.m., week 3 10 mg q.a.m. and discontinue week for). We will start mirtazapine 7.5 mg for 1 week and then transition to 15 mg for 2 weeks Code(s): F32.A - Depression, unspecified Category: Medical Qualifiers: Depression Type: major depressive disorder Major depression recurrence: recurrent Active/Remission status: currently active Major depression episode severity: mild Qualified Code(s): F33.0 - Major depressive disorder, recurrent, mild (7) Insomnia: Comment: - Discussed ceasing Temazepam due to risks of dependency and cognitive impairment. - Plan to wean off Temazepam by reducing to 7.5 mg for three weeks, then every other night for three weeks. - Discussed melatonin and behavioral sleep changes. Will also add mirtazapine to help with sleep Code(s): G47.00 - Insomnia, unspecified Category: Medical Qualifiers: Insomnia type: other insomnia Qualified Code(s): G47.09 - Other insomnia Plan: Health Maintenance: - Discussed diet and lifestyle modifications for cardiovascular health and diabetes. - Blood work ordered for diabetes management reassessment. - Emphasized importance of sleep hygiene and lifestyle modifications for sleep improvement. Patient was informed and verbally consented to the use of an ambient scribe for clinic note documentation during this visit. Plan During our encounter, I addressed the patient?s main concerns regarding insomnia and depression. I explained the risks associated with long-term use of Temazepam, including dependence and cognitive decline, and discussed a plan to gradually wean off this medication. We explored alternatives like behavioral strategies and melatonin. I also discussed the lack of effectiveness with her current antidepressant, Paroxetine, and proposed transitioning to Mirtazapine, addressing both depression and sleep concerns. The patient was informed about the gradual tapering process for Paroxetine. Her multiple chronic conditions, including hypertension, diabetes, COPD, and hyperlipidemia, were reviewed, and continued management was advised. Follow-up blood work for diabetes monitoring and regular ophthalmologic care for glaucoma were arranged. I emphasized health maintenance strategies, especially regarding cardiovascular risk and diabetes management. Orders: Orders Complete Blood Count Auto Diff Today Z76.89 - Persons encountering health services in other specified circumstances Comprehensive Met. Panel Today Z76.89 - Persons encountering health services in other specified circumstances Hemoglobin A1c Today Z76.89 - Persons encountering health services in other specified circumstances Lipid Panel Today Z76.89 - Persons encountering health services in other specified circumstances TSH reflex Free T4 Today Z76.89 - Persons encountering health services in other specified circumstances Vitamin D 25-OH Total Today Z76.89 - Persons encountering health services in other specified circumstances Medications: New temazepam 1 Capsule everynight for 3 weeks, then 1 capsule every other night for 3 weeks then stop 7.5 mg PO BEDTIME 32 caps 0RF 32 days mirtazapine 7.5mg for first week, then 15mg daily for week 2 and week 3 15 mg PO BEDTIME 21 tabs 0RF 3 weeks paroxetine HCl 20mg in the AM & 10MG in the PM for 1 week, 10mg in the AM & 10mg in the PM for 1 week, 10mg for 1 week then discontinue 60 tabs 0RF mirtazapine 30 mg PO BEDTIME 90 tabs 2RF 90 days Discontinued paroxetine HCl Discontinued Reason: Doctor's Order 20 mg PO BID 180 tabs 3RF temazepam Discontinued Reason: Doctor's Order 15 mg PO BEDTIME 10 days PRN 10 caps 0RF sleep Patient Instructions: - Reduce Temazepam to half the current dosage as per the plan. - Take Mirtazapine as prescribed, beginning tonight. - Continue all other medications as prescribed. - Follow dietary recommendations for diabetes and heart health. - Focus on good sleep hygiene habits. - Visit the lab as discussed for blood work. - Report any adverse effects or withdrawal symptoms to our office. - Follow-up appointment details will be provided.
[2025-01-18 14:10] VITALS: BP 140/58; PULSE 73; RESP 18; TEMP 36.2; O2SAT 98; BMI 26.2
== END 2025-01-18 14:42 | disposition home or self-care (01) ==
LOC: HO.HMCHD 14:06
PROVIDERS: PCP Internal Medicine; Visit Provider Student in an Organized Health Care Education/Training Program
DX: E78.49 Other hyperlipidemia (principal); I10 Essential (primary) hypertension; J41.0 Simple chronic bronchitis; E11.9 Type 2 diabetes mellitus without complications; K21.9 Gastro-esophageal reflux disease without esophagitis; F33.0 Major depressive disorder, recurrent, mild; G47.09 Other insomnia

== ENCOUNTER 2025-03-07 17:53 | Emergency (ER) | payer OTHER, SELFPAY ==
--- NOTE | ~2025-03-07 | XR_ITS ---
CLINICAL HISTORY: fall, pain 4 views right wrist Comparison: None Findings: No fractures or dislocations. No significant arthritic change. No radiopaque foreign body. Impression: 1. No fracture or dislocation. This document has been electronically signed by: Vinay Galeano MD on 03/07/2025 18:35:21
--- NOTE | ~2025-03-07 | XR_ITS ---
CLINICAL HISTORY: fall, pain 3 views right hand Comparison: None Findings: No fractures or dislocations. No significant arthritic change. No erosions. No radiopaque foreign body. Impression: 1. Unremarkable right hand This document has been electronically signed by: Vinay Galeano MD on 03/07/2025 18:37:41
--- NOTE | ~2025-03-07 | XR_ITS ---
CLINICAL HISTORY: fall, tenderness Right rib films with PA chest Comparison: Chest x-ray 02/05/2023 Findings: No rib fractures. Bones appear unremarkable.. Lungs are clear bilaterally. Cardiac and mediastinal contours appear stable. Impression: 1. No right rib fractures. This document has been electronically signed by: Vinay Galeano MD on 03/07/2025 18:35:33
[2025-03-07 18:05] VITALS: BP 145/75; PULSE 68; RESP 18; TEMP 36.3; O2SAT 95; BMI 24.8
--- NOTE | 2025-03-07 18:06 | ED_ITS ---
HPI - General Adult General Chief complaint: Fall Stated complaint: Fall at work Time Seen by Provider: 03/07/25 19:17 History of Present Illness ED Provider: Shelby Billings HPI narrative: 80-year-old female presents to the ED for evaluation after a mechanical fall t hat occurred at work around 2:00 p.m.. Patient reports that she believes she tripped on a rubber run her on the floor, and fell into the edge of the desk on the right side, with the upper abdomen striking the desk. Reports right-sided rib discomfort. Reports that she lives on the floor on her buttocks, without head strike, LOC. She is not on anticoagulants. No neck pain. She endorses right hand and wrist pain, and right-sided rib pain. No chest pain or pressure, shortness of breath. No pain with deep inspiration or acceleration. No fever, chills, recent illnesses, abdominal pain, nausea or vomiting, urinary complaints. No dizziness, lightheadedness prior to or after the fall. Related Data Home Medications ?Medication ?Instructions ?Recorded ?Confirmed albuterol sulfate 90 mcg/actuation 2 puff inhalation Q ID PRN 11/07/24 01/18/25 aerosol inhaler metformin 500 mg tablet,extended 250 mg PO DAILY 11/0701/18/25 release 24 hr bimatoprost 0.03 % eye drops 1 drp ophthalmic (eye) BE DTIME 01/18/25 01/18/25 Previous Rx's ?Medication ?Instructions ?Recorded aspirin 81 mg tablet,delayed 81 mg PO DAILY #90 tabs 0 07/15/24 release benazepril 40 mg tablet 40 mg PO DAILY #90 tabs 040 08/05 hydrochlorothiazide 25 mg tablet 25 mg PO DAILY #90 ta bs 07/15/24 lovastatin 40 mg tablet 40 mg PO DAILY #90 tabs 0 08/05 metoprolol tartrate 50 mg tablet 25 mg (1/2 x 50 mg) P O BID #90 tabs 07/15/24 Spiriva Respimat 2.5 mcg/actuation 2 puff inhalation D AILY #4 grams 07/21/24 solution for inhalation (tiotropium bromide) omeprazole 20 mg capsule,delayed 20 mg PO BID #90 caps 11/14/24 release mirtazapine 15 mg tablet 15 mg PO BEDTIME 3 weeks #21 tabs 01/18/25 mirtazapine 30 mg tablet 30 mg PO BEDTIME 90 days #90 tabs 01/18/25 paroxetine HCl 10 mg tablet See Rx Instructions PO CHAVA LY #60 01/18/25 tabs temazepam 7.5 mg capsule 7.5 mg PO BEDTIME 32 days #3 2 caps 01/18/25 lidocaine 5 % topical patch 1 patch topical DAILY 7 da ys #15 ea 03/07/25 (Lidoderm) Allergies Allergy/AdvReac Type Severity Reaction Status Date / Time cat dander (CATS) Allergy Unknown WHEEZING,RUNNY Verified 03/07/25 18:08 NOSE dog dander (DOGS) Allergy Unknown RUNNY NOSE Verified 03/07/25 18:08 codeine (CODEINE) AdvReac Mild HEART RACE Verified 03/07/25 18:08 Codeine Phosphate Allergy Unknown tachycardia Uncoded 03/18/23 14:21 ENVIRONMENTAL Allergy Unknown AFFECTS Uncoded 03/18/23 14:21 BREATHING DAIRY PRODUCTS AdvReac Unknown LACTOSE Uncoded 03/18/23 14:21 INTOL Review of Systems Review of Systems: ROS is otherwise negative unless mentioned in HPI. [facility] Past Medical History Medical History (Updated 03/07/25 @ 19:42 by Shelby [facility]ings [facility]) Insomnia Depression GERD (gastroesophageal reflux disease) Diabetes Hyperlipidemia COPD (chronic obstructive pulmonary disease) COPD (chronic obstructive pulmonary disease) Hypercholesteremia Hypertension Surgical History History of lumpectomy of right breast Family History Family History Father Hodgkin lymphoma Sister Breast cancer Social History Social History Household Members: None Housing: Apartment Are you a primary transitions rn care coordinator to a significant other at home: No Do you presently have visiting nurse or other home services: No Patient Tobacco Use Status: Former Tobacco user Tobacco use type: Cigarette Years Smoked: 20 e-Cigarette/Vaping Use: Never Used Advance Directives: No Advance Directives Information Provided: No service: No Current occupational status: employed Current occupation: [employer] Physical Exam ED Exam Exam: Nursing notes and vital signs reviewed. Constitutional: Well-appearing, NAD. Alert. Oriented X3. Eyes: EOMI. ENT: Pharynx normal. Neck: Normal inspection. Neck supple. CVS: Normal heart rate and rhythm. Pulses normal. Thorax: No tenderness to the anterior rib cage on palpation. Respiratory: No respiratory distress. Breath sounds normal. Abdomen: Soft and nontender. Skin: Skin warm and dry. Normal skin color. No bruising. Extremities: No lower extremity edema. Neuro: Oriented X 3. No motor deficit. Vital Signs: Vital Signs - 24 hr 03/07/25 18:05 03/07/25 19:44 Temperature 97.3 F 97.3 F Pulse Rate 68 68 Respiratory Rate 18 18 Blood Pressure 145/75 H 145/75 H Pulse Oximetry 95 95 Oxygen Delivery Method Room Air Room Air BMI result Body Mass Index 24.8 Course Course Course Narrative: This is a rapid medical exam performed by Giovany Wood NP: Additional HPI, ROS, PE not included below will be deferred to primary provider. Patient is a 80y/o F presenting to the ED with complaint of right sided rib/abd pain after a fall at work. Turned around and tripped on the runner, hit ribs on desk on the way down to the floor. Denies head strike or LOC. Not anticoagulated. Plan: ribs xray, wrist/hand Medications Administered Discontinued Medications Generic Name Dose Route Start Last Admin Trade Name Kurtisq PRN Reason Stop Dose Admin Lidocaine 1 patch 03/07/25 19:41 03/07/25 19:49 Lidocaine 4 % Patch Adh..Patch TRANSDERMA 03/07/25 19:42 1 patch ONCE ONE Administration Protocol Medical Decision Making Medical Decision Making MDM Narrative: Upon exam, she overall appears well. There is no tenderness to the rib cage upon my assessment. With deep inspiration she is holding the right anterior ribs. X-ray imaging of the wrist, hand, as well as ribs show no evidence of any abnormality. Specifically, no acute fractures. She is requesting discharge home at this time, stating that she has been here for several hours and now feels much better. She tells me that her job urged her to come to the ED for evaluation. She also provided me a form to fill out, specifically for her job, reporting that she was seen in the ER today, which I did. She tells me the ice packs applied topically are very helpful, and have significantly decreased her pain. I have recommended she use Tylenol [id number]. She is agreeable, we will follow up outpatient with primary care. Provided strict return precautions to the ED. Differential Diagnosis Differential Diagnoses: The differential diagnosis associated with the presentation includes Underlying fracture, sprain, dislocation, costochondritis, rib contusion Admission/Observation Consideration of admission/observation: Escalation of care including admission/observation considered (Not indicated) Independent Interpretation I performed an independent interpretation of an: Plain X-Ray Interpretation: I have reviewed the patient's imaging and agree with the radiologist's findings. Radiology Impression Discussion of test interpretation with radiology: I have reviewed the radiologist's reading. Radiologist Impression: Impression: 1. Unremarkable right hand Impression: 1. No right rib fractures. Impression: 1. No fracture or dislocation. Independent Historian None External Record Review External record reviewed: Inpatient record Tests considered The following testing was considered but not selected: None Prescription Management I considered prescription management with: Pain Medication Not indicated, will use OTC meds Chronic Conditions Patient?s care impacted by: Hypertension and Other (COPD) Social Determinants Patient?s care significantly limited by Social Determinants of Health including: Problems related to primary support group Discharge Plan Discharge Clinical Impression: Rib pain on right side Patient Disposition: Home, Self-Care Instructions: Chest Wall Pain (ED) Additional Instructions: As we discussed, the x-ray of your ribs, hand, and wrist show no acute fractures at this time. We have prescribed a course of Lidoderm patches, which can be applied topically to areas of pain. You may also use Tylenol. Please follow up with your primary care provider within 1 week. With any worsening complaints at any time, seek re-evaluation in the ED. Prescriptions: New lidocaine [Lidoderm] 5 % adhesive patch,medicated 1 patch topical DAILY 7 Days Qty: 15 0RF Rx Instructions: leave on most painful area for up to 12 hrs No Action aspirin 81 mg tablet,delayed release (DR/EC) 81 mg PO DAILY Qty: 90 3RF benazepril 40 mg tablet 40 mg PO DAILY Qty: 90 3RF hydrochlorothiazide 25 mg tablet 25 mg PO DAILY Qty: 90 3RF lovastatin 40 mg tablet 40 mg PO DAILY Qty: 90 3RF metoprolol tartrate 50 mg tablet 25 mg PO BID Qty: 90 3RF Spiriva Respimat 2.5 mcg/actuation mist 2 puff INHALATION DAILY Qty: 4 11RF omeprazole 20 mg capsule,delayed release(DR/EC) 20 mg PO BID Qty: 90 1RF albuterol sulfate 90 mcg/actuation HFA aerosol inhaler 2 puff INHALATION QID PRN bimatoprost 0.03 % drops 1 drp ophthalmic (eye) BEDTIME temazepam 7.5 mg capsule 7.5 mg PO BEDTIME 32 Days Qty: 32 0RF Rx Instructions: 1 Capsule everynight for 3 weeks, then 1 capsule every other night for 3 weeks then stop paroxetine HCl 10 mg tablet See Rx Instructions PO DAILY Qty: 60 0RF Rx Instructions: 20mg in the AM & 10MG in the PM for 1 week, 10mg in the AM & 10mg in the PM for 1 week, 10mg for 1 week then discontinue mirtazapine 30 mg tablet 30 mg PO BEDTIME 90 Days Qty: 90 2RF mirtazapine 15 mg tablet 15 mg PO BEDTIME 21 Days Qty: 21 0RF Rx Instructions: 7.5mg for first week, then 15mg daily for week 2 and week 3 metformin 500 mg tablet extended release 24 hr 250 mg PO DAILY Referrals: Prabhjot Smith MD [Primary Care Provider, Internal Medicine] Stand Alone Forms: Work/School Release Interventions: ED Discharge Assessment Last Done: 03/07/25 19:44 Discharge Date/Time: 03/07/25 19:50 Print Language: Macedonian
[2025-03-07 19:44] VITALS: BP 145/75; PULSE 68; RESP 18; TEMP 36.3; O2SAT 95
--- OUTSIDE RECORDS SUMMARY | 2025-03-07 19:44 | XMS_ITS | Patient Health Record ---
Author Organization [facility] Address [address] [place] [id number] Care Team Providers Care Library Technical Assistant Name Role Phone Rosas Reynolds Davidabigail Chadwick [phone] Reason For Referral No Information Plan Of Treatment No Information
--- OUTSIDE RECORDS SUMMARY | 2025-03-07 19:44 | XMS_ITS | Clinical Summary ---
Author Organization [employer] Address [address] [place] [address] Care Team Providers Care Oil Field Technician Name Role Phone Unavailable Primary Care Provider [...] patient's age to complete this topic Insurance [facility] , [address] [place] [address]
[2025-03-07] MEDS: Lidocaine 4 % Patch ADH..PATCH 1 PATCH TRANSDERMA (19:49)
== END 2025-03-07 19:50 | disposition home or self-care (01) ==
PROVIDERS: Emergency Provider Student in an Organized Health Care Education/Training Program; PCP Student in an Organized Health Care Education/Training Program
DX: S29.9XXA Unspecified injury of thorax, initial encounter (principal); W18.30XA Fall on same level, unspecified, initial encounter; Y93.89 Activity, other specified; Y92.89 Other specified places as the place of occurrence of the external cause; Y99.0 Civilian activity done for income or pay; R07.89 Other chest pain; M25.531 Pain in right wrist
CPT/HCPCS: 71101; 73110; 73130; 99282; 99284

== ENCOUNTER → 2025-03-07 18:08 | Outpatient (BNV) | payer OTHER, SELFPAY | PROVIDERS: PCP Student in an Organized Health Care Education/Training Program; Visit Provider Radiology Diagnostic Radiology | DX: R07.89 Other chest pain (principal); M79.641 Pain in right hand; M25.531 Pain in right wrist; Z04.3 Encounter for examination and observation following other accident | CPT/HCPCS: 71101; 73110; 73130 ==